=== PATIENT | female | born 1970 | race Caucasian/White ===

== ENCOUNTER 2017-07-25 23:01 | Emergency (ER) | payer MEDICAID ==
[~2017-07-25] VITALS: Ht 162.6 cm; Wt 67.0 kg
[2017-07-25 23:06] VITALS: Ht 162.6 cm; Wt 67.0 kg
[2017-07-26] MEDS ORDERED: KETOROLAC 15 MG INJ IM STA (00:48)
--- NOTE | 2017-07-26 00:53 | ERD ---
ER Documentation Chief Complaint Chief Complaint shoulder pain and right arm pain x 4 weeks, denies injury HPI this 46 yr/old female presents to emergency department for right sided neck pain and mccoy with tingeing down arm, denies injury or change in behavior, vision or ROM , 2nd unrelated c/o low back pain HX of UTI, reports dysuria ROS All systems reviewed and are negative except as per history of present illness. Medications Home Meds Active Scripts Diazepam* (Valium*) 5 Mg Tablet, 5 MG PO Q8, #10 TAB Prov:TOM,LAMONT 07/26/17 Naproxen* (Naprosyn*) 500 Mg Tablet, 500 MG PO BID Y for PAIN AND/OR INFLAMMATION, #20 TAB Prov:TOM,LAMONT 07/26/17 Allergies Allergies: Coded Allergies: No Known Allergy (Unverified , 06/28/13) PMhx/Soc History of Surgery: No Anesthesia Reaction: No Hx Neurological Disorder: No Hx Respiratory Disorders: No Hx Cardiac Disorders: No Hx Psychiatric Problems: No Hx Miscellaneous Medical Probl: Yes (ANEMIA) Hx Alcohol Use: No Hx Substance Use: No Hx Tobacco Use: No Smoking Status: Never smoker Physical Exam Vitals Vital Signs Date Time Temp Pulse Resp B/P Pulse Ox O2 Delivery O2 Flow Rate FiO2 07/26/17 04:18 97.8 69 20 123/78 100 07/25/17 23:06 97.8 75 20 176/90 100 Vitals stable, triage notes reviewed Physical Exam Const: Well-nourished well-appearing 46-year-old female in no acute distress Head: Atraumatic Eyes: Normal Conjunctiva ENT: Neck: No cervical point tenderness along bony prominence of C-spine , paraspinal tenderness left-sided with left trapezial tenderness full range of motion with rotation, flexion extension and lateral bending Resp: Cardio: Abd: Skin: Back: Ext: Neur: Awake and alert, Psych: Normal Mood and Affect Results 24 hrs Laboratory Tests Test 07/26/17 01:20 Urine Color COLORLESS Urine Clarity CLEAR Urine pH 7.0 Urine Specific [place] 1.002 Urine Ketones NEGATIVEmg/dL Urine Nitrite NEGATIVEmg/dL Urine Bilirubin NEGATIVEmg/dL Urine Urobilinogen NEGATIVEmg/dL Urine Leukocyte Esterase NEGATIVELeu/ul Urine Hemoglobin NEGATIVEmg/dL Urine Glucose NEGATIVEmg/dL Urine Total Protein NEGATIVEmg/dl Current Medications Medications (Trade) Dose Ordered Sig/Neelima Route PRN Reason Start Time Stop Time Status Last Admin Dose Admin Ketorolac Tromethamine (Toradol) 15 mg ONCE STAT IM 07/26/17 00:48 07/26/17 00:51 DC 07/26/17 01:30 Diazepam (Valium) 5 mg ONCE ONCE PO 07/26/17 01:00 07/26/17 01:01 DC 07/26/17 01:27 Urinalysis negative for evidence of infection, Procedures/MDM This 46-year-old female presents to emergency department for evaluation of right -sided neck pain without history of injury, patient also reports low back pain history of urinary tract infections, emergency room course includes history and physical exam patient is neurovascularly stable, without headache, change in speech, or extremity weakness, Nexus criteria does not recommend x-ray. Plan to treat for muscular pain have little suspicion for a CVA, or TIA. Patient treated with 15 mg of intramuscular Toradol, 5 mg of Valium, a urinalysis was obtained negative for evidence of infection, patient reassessed after 60 minutes with improvement of symptoms plan to discharge patient home with Naprosyn 500 mg 1 tab p.o. twice daily 10 days, Valium 5 mg 1 tab p.o. every 8 hours as needed count of 10 provided. Patient instructed to follow-up with her primary care physician for reevaluation and possible referral to physical therapy, return to emergency department for headache, slurred speech, change in behavior or mentation. Patient is stable with no new complaints during ER course, clinically there is no current evidence to suggest meningitis, TIA, CVA , pyelonephritis, urinary tract infection, acute abdomen, neurovascular injury or any other emergent condition appearing to require further evaluation or hospitalization. I feel the patient is stable for discharge at this time. I have discussed results, examination findings, the treatment plan with the patient and family present prior to discharge. Indications for emergent reevaluation, side effects of medication were also discussed. All questions were answered. Patient verbalizes understanding and agrees with plan of care. Departure Diagnosis: Primary Impression: Neck pain Condition: Good Patient Instructions: Neck Pain, No Trauma [facility] Additional Instructions: Thank you for for coming to [facility] for your care today. Please ask your nurse or provider if you have questions about your care today and do not leave until all your questions have been answered. Please use any medications given as directed and follow-up with your doctor (or the doctor you were referred to) in the next 2-3 days. If you do not have a primary care doctor you may follow up at the [facility] (listed below). You may also use motrin and tylenol as needed for fever and/or pain unless instructed otherwise by your provider or nurse. Indications for more urgent follow-up have been discussed, but you may return to the Emergency Department at ANY time for any worrisome or worsening symptoms. If you have abdominal pain, please know that no test or exam you received is perfect and you should follow up within 8 hours for continued pain. If you had any imaging studies today, such as an X-Ray or CT Scan, these studies will be reviewed later by a radiologist. You will be called if there are important findings that were not identified today, so make sure the contact information you provided at registration is correct. If you received any narcotic pain control medicine today, such as Vicodin, Morphine or Dilaudid, your coordination and judgment may be affected for a number of hours. Please do not drive or operate heavy machinery, and you may want someone to assist you at home. If you were given a prescription for narcotic medication, be aware that it is very addictive- use sparingly and only if necessary. LAMONT SANTOS Jul 26, 2017 00:53
[2017-07-26] MEDS ORDERED: DIAZEPAM 5 MG TAB PO ONE (01:00)
[2017-07-26] MEDS ORDERED: NAPR-260 PO (04:09)
[2017-07-26] MEDS ORDERED: DIAZ-90 PO (04:09)
[2017-07-26 04:18] VITALS: BP 123/78; PULSE 69; RESP 20; TEMP 97.8
== END 2017-07-26 04:19 | disposition home or self-care (01) ==
LOC: FTE 23:01
DX: M54.2 Cervicalgia (principal)
CPT/HCPCS: 81003; 96372; J1885; Z7502; Z7610